=== PATIENT | female | born 1990 | race Caucasian/White ===

== ENCOUNTER 2022-01-27 00:26 | Emergency (ER) | payer MEDICAID ==
[2022-01-27 01:40] LABS: CORONAVIRUS COVID-19 NAA NEGATIVE (NEGATIVE)
== END 2022-01-27 02:37 | disposition home or self-care (01) ==
LOC: JP.ED 00:26
DX: S09.90XA Unspecified injury of head, initial encounter (principal); Z20.822 Contact with and (suspected) exposure to COVID-19; W01.0XXA Fall on same level from slipping, tripping and stumbling without subsequent striking against object, initial encounter
CPT/HCPCS: 0241U; 36415; 70450; 80053; 81001; 85025; 99283; 99284-25